=== PATIENT | male | born 1985 | race Caucasian/White ===

== ENCOUNTER 2021-11-03 15:00 | Outpatient (CLI) | payer BC | END 2021-11-03 15:01 | disposition home or self-care (01) | LOC: CSHCT 15:00 | PROVIDERS: ATTEND Student in an Organized Health Care Education/Training Program | DX: J32.9 Chronic sinusitis, unspecified (principal); J34.1 Cyst and mucocele of nose and nasal sinus; J32.0 Chronic maxillary sinusitis ==

== ENCOUNTER 2021-11-19 08:19 | Emergency (ER) | payer BC | END 2021-11-19 09:06 | LOC: CSHERS 08:19 | DX: F10.20 Alcohol dependence, uncomplicated (principal); F17.220 Nicotine dependence, chewing tobacco, uncomplicated | CPT/HCPCS: 99282 ==

== ENCOUNTER 2022-06-24 14:47 | Outpatient (CLI) | payer OTHER | END 2022-06-24 14:48 | disposition home or self-care (01) | LOC: CSHULT 14:47 | PROVIDERS: ATTEND Nurse Practitioner Family | DX: R35.0 Frequency of micturition (principal); R10.11 Right upper quadrant pain; Z87.442 Personal history of urinary calculi | CPT/HCPCS: 76770 ==

== ENCOUNTER 2022-11-25 09:08 | Outpatient (CLI) | payer OTHER | END 2022-11-25 09:09 | disposition home or self-care (01) | LOC: CSHMRI 09:08 | PROVIDERS: ATTEND Family Medicine | DX: R93.6 Abnormal findings on diagnostic imaging of limbs (principal); M89.9 Disorder of bone, unspecified ==